=== PATIENT | female | born 1965 | race Caucasian/White ===

== ENCOUNTER 2019-04-29 12:30 | Emergency (ER) | payer MEDICAID ==
[~2019-04-29] VITALS: Ht 162.6 cm; Wt 63.5 kg
[2019-04-29] MEDS ORDERED: KETOROLAC TROMETHAMINE 60 MG INJ IM ONE ×2 (12:57→13:00)
--- NOTE | 2019-04-29 13:20 | NUR ---
PATIENT WAS MSE BY DR LAGUNA IN ROOM 02B.
--- NOTE | 2019-04-29 13:29 | NUR ---
Patient discharged to home in stable conditon. Written and verbal after care instructions given. Patient verbalizes understanding of instructions.
[2019-04-29 13:30] VITALS: BP 122/75
== END 2019-04-29 13:31 | disposition home or self-care (01) ==
LOC: ER 12:30
DX: M54.5 Low back pain (principal); Z91.048 Other nonmedicinal substance allergy status
CPT/HCPCS: 96372; 99283; J1885; A4663

== ENCOUNTER 2019-05-07 19:57 | Emergency (ER) | payer MEDICAID ==
[~2019-05-07] VITALS: Ht 162.6 cm; Wt 59.0 kg
[2019-05-07] MEDS ORDERED: CODE30TA2 PO (20:10)
[2019-05-07] MEDS ORDERED: NAPR-1009 PO (20:10)
[2019-05-07] MEDS ORDERED: HYDROMORPHONE 2 MG/1 ML DISP.SYRIN ONE (20:36)
[2019-05-07] MEDS ORDERED: ONDANSETRON 4 MG/2 ML VIAL ONE (20:36)
[2019-05-07] MEDS ORDERED: ONDANSETRON 4 MG/2 ML VIAL IM ONE (20:45)
[2019-05-07] MEDS ORDERED: HYDROMORPHONE 1 MG/1 ML DISP.SYRIN IM ONE (20:45)
--- NOTE | 2019-05-07 21:25 | NUR ---
Patient states "I feel better now." Pain is 5/10 from a 9/10.
--- NOTE | 2019-05-07 21:36 | NUR ---
Patient discharged to home in stable conditon with family driving patient home. Written and verbal after care instructions given. Patient/family verbalizes understanding of instructions. Patient assisted to private vehicle via wheelchair
[2019-05-07 21:38] VITALS: BP 104/75
== END 2019-05-07 21:39 | disposition home or self-care (01) ==
LOC: ER 20:01
DX: M54.5 Low back pain (principal); Z79.891 Long term (current) use of opiate analgesic; Z79.899 Other long term (current) drug therapy
CPT/HCPCS: 72100; 96372 ×2; 99283; J1170; J2405; A4663